=== PATIENT | female | born 1975 | race Caucasian/White ===

== ENCOUNTER 2019-07-06 15:44 | Outpatient (CLI) | payer OTHER, SELFPAY ==
--- NOTE | ~2019-07-06 | MR_ITS ---
EXAMINATION: MR lumbar spine wo con DATE: 07/06/2019 16:41 INDICATION: Low back pain. TECHNIQUE: Magnetic resonance imaging (MRI) of the lumbar spine was performed without intravenous con trast. Sequences included sagittal T2-weighted FSE, sagittal T2-weighted FS FSE, sagittal T1-weighted FSE, and axial T2-weighted FSE. COMPARISON: Lumbar spine MRI 12/24/2017 FINDINGS: There is 6 degrees levocurvature of lumbar spine. There are Schmorl's nodes at most levels. There is mild chronic anterior wedging of T11 and T12 vertebral bodies. There is mildly decreased di sc height at L4-L5. The distal spinal cord signal intensity is normal. The conus medullaris is at L1- L2. The following disc levels are specifically discussed: L1-L2: The disc is mildly bulging. There is no facet joint osteoarthritis. There is no neural foramin al stenosis. There is mild central canal stenosis. L2-L3: The disc does not extend beyond the endplate margin. There is mild bilateral facet joint osteo arthritis. There is no neural foraminal stenosis. There is no central canal stenosis. L3-L4: The disc is mildly bulging. There is mild right facet joint osteoarthritis. There is no neural foraminal stenosis. There is mild central canal stenosis. L4-L5: The disc is bulging and has an annular fissure. There are changes of left hemilaminotomy. Ther e is moderate right and mild left facet joint osteoarthritis. There is mild bilateral neural foramina l stenosis. There is mild central canal stenosis. L5-S1: The disc does not extend beyond the endplate margin. There is mild right and severe left facet joint osteoarthritis. There is no neural foraminal stenosis. There is no central canal stenosis. IMPRESSION: 1. Mild lumbar spondylosis with interval microdiscectomy at L4-L5. Reviewed, dictated and finalized at location A. S PROJECT COORDINATOR
== END 2019-07-06 15:45 | disposition home or self-care (01) ==
PROVIDERS: PCP Internal Medicine Infectious Disease; Visit Provider Chiropractor Rehabilitation
DX: M47.896 Other spondylosis, lumbar region (principal)
CPT/HCPCS: 72148

== ENCOUNTER 2022-12-13 19:53 | Emergency (ER) | payer OTHER, SELFPAY ==
--- NOTE | ~2022-12-13 | XR_ITS ---
EXAMINATION: XR elbow LT min 3V DATE: 12/13/2022 20:11 INDICATION: Left elbow pain. Injury. TECHNIQUE: 4 views of left elbow were obtained. COMPARISON: None. FINDINGS: Bone alignment is normal. No fracture. Joint spaces are well maintained. There is an enthes ophyte at lateral humeral epicondyle. There is no elbow joint effusion. IMPRESSION: 1. No fracture. Reviewed, dictated and finalized at location E. IMPRESSION: 1. No fracture.
[2022-12-13 20:00] VITALS: BP 147/110; PULSE 91; RESP 16; TEMP 36.7; O2SAT 99
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
== END 2022-12-13 20:19 | disposition home or self-care (01) ==
PROVIDERS: Emergency Provider Nurse Practitioner Family; PCP Internal Medicine Infectious Disease
DX: S53.402A Unspecified sprain of left elbow, initial encounter (principal); S59.812A Other specified injuries left forearm, initial encounter; X58.XXXA Exposure to other specified factors, initial encounter; F32.A Depression, unspecified; Z85.828 Personal history of other malignant neoplasm of skin
CPT/HCPCS: 73080; 99203; G0463